=== PATIENT | male | born 1955 | race Caucasian/White ===

== ENCOUNTER → 2020-11-22 14:15 | Outpatient (CLI) | payer SELFPAY ==
[2020-11-22 16:40] LABS: PSA,Total - Annual Screen 1.72 ng/mL (0.00-4.00)
== END ==
PROVIDERS: PCP Family Medicine; Referring Provider Nurse Practitioner Adult Health; Visit Provider Nurse Practitioner Adult Health
DX: Z12.5 Encounter for screening for malignant neoplasm of prostate (principal)
CPT/HCPCS: 36415; 84153; G0103

== ENCOUNTER → 2023-03-12 | Outpatient (CLI) | payer OTHER, SELFPAY ==
[2023-03-12 11:25] LABS: PSA,Total- Diagnostic 2.07 ng/mL (0.0-4.0)
== END | disposition home or self-care (01) ==
LOC: LAB 10:20
PROVIDERS: PCP Family Medicine; Referring Provider Urology; Visit Provider Urology
DX: R97.20 Elevated prostate specific antigen [PSA] (principal)
CPT/HCPCS: 36415; 84153

== ENCOUNTER → 2024-04-13 | Outpatient (CLI) | payer OTHER, SELFPAY | END | disposition home or self-care (01) | LOC: LAB 11:21 | PROVIDERS: PCP Family Medicine; Referring Provider Urology; Visit Provider Urology | DX: N40.1 Benign prostatic hyperplasia with lower urinary tract symptoms (principal) | CPT/HCPCS: 36415; 84153 ==

== ENCOUNTER → 2025-02-22 | Outpatient (CLI) | payer OTHER, SELFPAY ==
--- OUTSIDE RECORDS SUMMARY | 2025-02-22 09:07 | XMS RPT_ITS | CCD ---
Author Organization [facility] Care Team Providers Care Tightener Name Role Phone DANDRE CALHOUN Admitting Unavailable DANDRE CALHOUN Attending Unavailable MP MEAD Primary Care Unavailable MP MEAD Consulting Unavailable CHRISTIANO CALDWELL Consulting Unavailable BLOK, KIMBERLY JR Admitting Unavailable BLOK, KIMBERLY JR Primary Care Unavailable BLOK KIMBERLY JR Attending Unavailable PROVIDER, UNKNOWN Consulting Unavailable CHRISTIANO CALDWELL Consulting Unavailable BASALI, AYMAN H Admitting Unavailable BASALI, AYMAN H Primary Care Unavailable BASALI, AYMAN H Attending Unavailable PROVIDER, UNKNOWN Consulting Unavailable CHRISTIANO CALDWELL Consulting Unavailable BLOK, KIMBERLY JR Admitting Unavailable BLOK, KIMBERLY JR Primary Care Unavailable KAYLAK, KIMBERLY JR Attending Unavailable JORDY VILLAVICENCIO Referring Unavailable PROVIDER, UNKNOWN Consulting Unavailable CHRISTIANO CALDWELL DO Primary Care Physician CHRISTIANO CALDWELL DO Primary Care Unavailable DAYRL DELGADO DO Attending Unavailable Christiano Caldwell Referring Unavailable Christiano Caldwell Primary Care Unavailable Sadiq Burch Attending Unavailable Christiano Caldwell Referring Unavailable Christiano Caldwell Primary Care Unavailable Les Whittaker Attending Unavailable Demetri Huffman Referring Unavailable Demetri Huffman Attending Unavailable Christiano Caldwell Primary Care Unavailable Christiano Caldwell Primary Care Unavailable Christiano Caldwell Referring Unavailable Les Whittaker Attending Unavailable Christiano Caldwell Referring Unavailable Les Whittaker Attending Unavailable Christiano Caldwell Primary Care Unavailable Medications Current Medications Medication Drug Class(es) Dates Sig (Normalized) Sig (Original) acetaminophen 325 mg / HYDROcodone bitartrate 5 mg oral tablet (1 source) Opioid Agonist Start: 06-09-2024 End: 06-12-2024 take 1 tablet by mouth every eight hours as needed for pain Dimock 325- 5 mg oral tablet Dose = 1 tab(s), Oral, q8h, PRN for pain, X 3 day(s), # 10 tab(s), 0 Refill(s), Flank pain, 74 Start Date: 06/09/24 Stop Date: 06/12/24 Status: Ordered Quantity: 10.0 Unit: tab(s) Repeat number: 1 Indication: Unspecified abdominal pain acetaminophen 325 mg / oxyCODONE hydrochloride 5 mg oral tablet (1 source) Opioid Agonist Start: 04-04-2023 take 1 tablet by mouth every six hours as needed for pain acetaminophen-oxyC ODONE 325 mg-5 mg oral tablet Dose = 1 tab(s), Oral, q6h, PRN for pain, # 12 tab(s), 0 Refill(s) Start Date: 04/04/23 Status: Ordered Quantity: 12.0 Unit: tab(s) Repeat number: 1 tamsulosin hydrochloride 0.4 mg oral capsule (1 source) alpha-Adrenergic Isaiah Start: 04-04-2023 tamsulosin 0.4 mg oral capsule Dose : 0.4 mg = 1 cap(s), Oral, qDay, # 30 cap(s), 0 Refill(s) Start Date: 04/04/23 Status: Ordered Quantity: 30.0 Unit: cap(s) Repeat number: 1 Problems Problem Classification Problem Date Documented Da te Episodic/Chronic Abdominal pain (1 source) Abdominal pain; Translations: [Unspecified abdominal pain] Onset: 06-09-2024 Episodic Hyperplasia of prostate (1 source) Benign prostatic hyperplasia with lower urinary tract symptoms; Translations: [Benign prostatic hyperplasia with lower urinary tract symptoms] Onset: 05-11-2024 Chronic Unclassified (1 source) Cough, unspecified; Translations: [Cough, unspecified] Onset: 09-09-2023 Results Test Name Value Interpretation Reference Range Facility Office Visit Reporton 2024 Office Visit Report [facility] [address] [address] OFFICE VISIT Date of Service: 07/02/24 MR#: [id number] Acct: [id number] Patient: SULLY PERRY Rep #: [id number] : 1955 Provider: MARQUISE Parr Age/Sex: 69/M Location: [facility] Status: Signed Intake Vital Signs 05/07/24 10:56 Height 1.78 m Weight: 77.564 kg BMI 24.5 BP 111/73 Blood Pressure Location Lt brachial Position Sitting Pulse 91 Pulse Source Monitor Temp 98.2 F Temp Source Temporal Pulse Oximetry (%) 90 Intake Visit Reasons: SINUS INFECTION/CHEST CONGESTION Chief Complaint: sinus congestion Allergies No Known Allergies Allergy (Unverified 05/07/24 10:57) Have you fallen in the past year?: No HPI HPI Chief Complaint: sinus congestion Details: SULLY PERRY, is a 69 M who presents to the office today for sinus congestion. Pt has a hx of sinus surgeries and sinus infections, as well as copd. He has had 2 days of sinus pressure in the frontal and maxillary sinuses with pain. He has congestion, post nasal drainage and cough. He is wheey but he denies breathing difficulty. He also has had some chills, sweats, and body aches, noting his arthritis is much worse which he relates to the rain. He ROS Const Constitutional: Positive for body ache and chills; No fever(s) Resp Respiratory: Positive for cough and wheezing; No shortness of breath Gastro GI: No diarrhea, nausea/dyspepsia or vomiting Aller/Imm Allergy/Immunologic: Positive for wheezing Exam Const General: cooperative, healthy appearing, comfortable, no acute distress, well developed and well groomed Nutritional Appearance: average body habitus and well nourished Orientation: alert, awake and oriented x3 HENMT Head: normocephalic and atraumatic Face and sinus: sinus tenderness frontal and maxillary Resp Effort Inspection: normal respiratory effort, able to speak in complete sentences, symmetric chest movement and cough Auscultation: Bilateral: Expiratory Wheezes (diffuse) and Crackles (BL bases) Cardio Rate: regular rate Rhythm: regular rhythm Heart Sounds: no murmurs Coding Level of Care Code Off vis,est,level 3 Diagnoses Acute sinusitis J01.90 Assessment and Plan Assessment and Plan (1) Acute sinusitis: Status: Acute Plan: Acute sinusitis - pt has had many sinus infections due to underlying sinus issues, and previous sinus surgeries. He insists azithromycin is the only thing that helps him. He is also very wheezy tho he denies SOB, and has a hx of COPD and smoking. Last time he was here he had the same issues and responded well to azithromycin and medrol dose pack. The same will be utilized this time. If no improvement or ongoing issues follow up with pcp 1 week or if worsening go to the ER. Medications: New azithromycin (Zithromax Z-Aakash) take 500 mg today (day 1), then 250 mg for 4 days (days 2-5) PO 6 tabs 0RF methylprednisolone PO PER PKG DIR 21 tabs 0RF Discontinued azithromycin (Zithromax Z-Aakash) Discontinued Reason: Pt no longer taking For 250 mg dose pack: take 500 mg today (day 1), then 250 mg for 4 days (days 2-5) PO 6 tabs 0RF methylprednisolone (Medrol (Aakash)) Discontinued Reason: Pt no longer taking PO PER PKG DIR for 6 days 21 tabs 0RF Clinical Quality Measures Falls Risk Screening/Assistive Devices Have you fallen in the past year?: No 07/02/24 0907 Date Les Lenz Signature: Date (if applicable) CC: Normal [facility] .Auto Diffon 06-09-2024 Basophil, Absolute 0.1 10 3/mcL Normal 0.0-0.2 [facility] Comment on above: Performed By: #### A NYASIA, CMP, MDW, GFR, LIP, CBC, ADIFF #### [address] [place], [place] [address] Basophils/100 WBC (Bld) 0.7 % Normal 0.0-2.5 [facility] Comment on above: Performed By: #### A NYASIA, CMP, MDW, GFR, LIP, CBC, ADIFF #### [address] [place], [place] [address] Eosinophil, Absolute 0.0 10 3/mcL Normal 0.0-0.7 [facility] Comment on above: Performed By: #### A NYASIA, CMP, MDW, GFR, LIP, CBC, ADIFF #### [address] [address] Eosinophils/100 WBC (Bld) 0.1 % Normal 0.0-7.0 [facility] Comment on above: Performed By: #### A NYASIA, CMP, MDW, GFR, LIP, CBC, ADIFF #### [address] [address] Lymphocyte, Absolute 0.6 10 3/mcL Low 0.9-4.3 [facility] Comment on above: Performed By: #### A NYASIA, CMP, MDW, GFR, LIP, CBC, ADIFF #### [address] [address] Lymphocytes/100 WBC (Bld) 6.3 % Low 20.0-40.0 [facility] Comment on above: Performed By: #### A NYASIA, CMP, MDW, GFR, LIP, CBC, ADIFF #### [address] [address] Monocyte, Absolute 0.3 10 3/mcL Normal 0.1-1.4 [facility] Comment on above: Performed By: #### A NYASIA, CMP, MDW, GFR, LIP, CBC, ADIFF #### [address] [address] Monocytes/100 WBC (Bld) 2.9 % Normal 2.0-13.0 [facility] Comment on above: Performed By: #### A NYASIA, CMP, MDW, GFR, LIP, CBC, ADIFF #### [address] [address] Neutrophils/100 WBC (Bld) 90.0 % High 50.0-75.0 [facility] Comment on above: Performed By: #### A NYASIA, CMP, MDW, GFR, LIP, CBC, ADIFF #### [address] [address] .GFRon 06-09-2024 GFR Non- 113 ml/min/1.73sqm Normal [facility] Comment on above: Result Comment: GFR Population mean for , Non- Americans Ages 20-29 = 116 mL/min/1.73 sq.m. Ages 30-39 = 107 mL/min/1.73 sq.m. Ages 40-49 = 99 mL/min/1.73 sq.m. Ages 50-59 = 93 mL/min/1.73 sq.m. Ages 60-69 = 85 mL/min/1.73 sq.m. Ages 70+ = 75 mL/min/1.73 sq.m. Chronic Kidney Disease: Less than 60 mL/min/1.73 square meters End Stage Renal Disease: Less than 15 mL/min/1.73 square meters Performed By: #### A NYASIA, CMP, MDW, GFR, LIP, CBC, ADIFF #### [address] [place], [place] [address] GFR 137 ml/min/1.73sqm Normal [facility] Comment on above: Result Comment: GFR Population mean for , Non- Americans Ages 20-29 = 116 mL/min/1.73 sq.m. Ages 30-39 = 107 mL/min/1.73 sq.m. Ages 40-49 = 99 mL/min/1.73 sq.m. Ages 50-59 = 93 mL/min/1.73 sq.m. Ages 60-69 = 85 mL/min/1.73 sq.m. Ages 70+ = 75 mL/min/1.73 sq.m. Chronic Kidney Disease: Less than 60 mL/min/1.73 square meters End Stage Renal Disease: Less than 15 mL/min/1.73 square meters Performed By: #### A NYASIA, CMP, MDW, GFR, LIP, CBC, ADIFF #### [address] [place], [place] [address] .MDWon 06-09-2024 Monocyte Distribution Width 18.38 Normal 0.00-20.00 [facility] Comment on above: Result Comment: For ED adult patients suspected of sepsis, MDW<=20.0 does not rule out sepsis or risk of sepsis Performed By: #### A NYASIA, CMP, MDW, GFR, LIP, CBC, ADIFF #### [address] [address] .NEUABSon 06-09-2024 Neutrophil, Absolute 8.8 10 3/mcL High 2.3-8.1 [facility] Comment on above: Performed By: #### A NYASIA, CMP, MDW, GFR, LIP, CBC, ADIFF #### [address] [address] CBCon 06-09-2024 Erythrocyte distribution width (RBC) [Ratio] 13.7 % Normal 11.5-15.5 [facility] Comment on above: Performed By: #### A NYASIA, CMP, MDW, GFR, LIP, CBC, ADIFF #### [address] [address] Hematocrit (Bld) [Volume fraction] 44.8 % Normal 40.0-52.0 [facility] Comment on above: Performed By: #### A NYASIA, CMP, MDW, GFR, LIP, CBC, ADIFF #### [address] [address] Hgb 15.3 G/dL Normal 13.0-17.5 [facility] Comment on above: Performed By: #### A NYASIA, CMP, MDW, GFR, LIP, CBC, ADIFF #### [address] [address] MCH (RBC) [Entitic mass] 31.3 pg Normal 27.0-33.0 [facility] Comment on above: Performed By: #### A NYASIA, CMP, MDW, GFR, LIP, CBC, ADIFF #### [address] [place] [address] MCHC 34.3 G/dL Normal 32.0-36.0 [facility] Comment on above: Performed By: #### A NYASIA, CMP, MDW, GFR, LIP, CBC, ADIFF #### [address] [address] MCV (RBC) [Entitic vol] 91.3 fL Normal 81.0-100.0 [facility] Comment on above: Performed By: #### A NYASIA, CMP, MDW, GFR, LIP, CBC, ADIFF #### [address] [address] Platelet 201 10 3/mcL Normal 150-450 [facility] Comment on above: Performed By: #### A NYASIA, CMP, MDW, GFR, LIP, CBC, ADIFF #### [address] [address] Platelet mean volume (Bld) [Entitic vol] 8.4 fL Normal 6.4-10.5 [facility] Comment on above: Performed By: #### A NYASIA, CMP, MDW, GFR, LIP, CBC, ADIFF #### [address] [address] RBC 4.91 10 6/mcL Normal 4.50-6.00 [facility] Comment on above: Performed By: #### A NYASIA, CMP, MDW, GFR, LIP, CBC, ADIFF #### [address] [address] WBC 9.8 10 3/mcL Normal 4.5-10.8 [facility] Comment on above: Performed By: #### A NYAISA, CMP, MDW, GFR, LIP, CBC, ADIFF #### [address] [address] CMPon 06-09-2024 Albumin Level 3.2 G/dL Low 3.4-4.8 [facility] Comment on above: Performed By: #### A NYASIA, CMP, MDW, GFR, LIP, CBC, ADIFF #### [address] [address] Albumin/Globulin [Mass ratio] 1.0 {ratio} Low 1.1-2.5 [facility] Comment on above: Performed By: #### A NYASIA, CMP, MDW, GFR, LIP, CBC, ADIFF #### [address] [address] ALP [Catalytic activity/Vol] 73 U/L Normal 40-135 [facility] Comment on above: Performed By: #### A KYLIE MURRELL MDW, GFR, LIP, CBC, ADIFF #### [address] [address] ALT [Catalytic activity/Vol] 14 U/L Low 16-63 [facility] Comment on above: Performed By: #### A NYASIA, MD KYLIEW, GFR, LIP, CBC, ADIFF #### [address] [address] AST [Catalytic activity/Vol] 15 U/L Normal 10-40 [facility] Comment on above: Performed By: #### A KYLIE MURRELL MDW, GFR, LIP, CBC, ADIFF #### [address] [address] Bili Total 0.6 mg/dL Normal 0.2-1.0 [facility] Comment on above: Result Comment: Use of this assay is not recommended for patients undergoing treatment with eltrombopag due to the potential for falsely elevated results. Performed By: #### A KYLIE MURRELL MDW, GFR, LIP, CBC, ADIFF #### [address] [address] BUN/Creatinine Ratio 23 ratio Normal 7-27 [facility] Comment on above: Performed By: #### A KYLIE MURRELL MDW, GFR, LIP, CBC, ADIFF #### [address] [address] Calcium [Mass/Vol] 8.7 mg/dL Normal 8.4-10.2 [facility] Comment on above: Performed By: #### A KYLIE MURRELL MDW, GFR, LIP, CBC, ADIFF #### [address] [address] Chloride [Moles/Vol] 101 mmol/L Normal 98-107 [facility] Comment on above: Performed By: #### A NYASIA, KYLIE, W, GFR, LIP, CBC, ADIFF #### [address] [address] CO2 [Moles/Vol] 32 mmol/L High 23-31 [facility] Comment on above: Performed By: #### A KYLIE MURRELL, W, GFR, LIP, CBC, ADIFF #### [address] [address] Creatinine [Mass/Vol] 0.69 mg/dL Low 0.70-1.30 [facility] Comment on above: Result Comment: Test ing performed on Semantria Dimension EXL analyzer using a modified kinetic Chaz technique. Performed By: #### A KYLIE MURRELL, JUNIE, GFR, LIP, CBC, ADIFF #### [address] [address] Electrolyte Balance 1.0 mEq/L Low 4.0-15.0 [facility] Comment on above: Performed By: #### A KYLIE MURRELL MDW, GFR, LIP, CBC, ADIFF #### [address] [address] Globulin 3.2 G/dL Normal [facility] Comment on above: Performed By: #### A KYLIE MURRELL MDW, GFR, LIP, CBC, ADIFF #### [address] [address] Glucose [Mass/Vol] 170 mg/dL High 83-110 [facility] Comment on above: Performed By: #### A KYLIE MURRELL MDW, GFR, LIP, CBC, ADIFF #### [address] [address] Potassium [Moles/Vol] 4.5 mmol/L Normal 3.5-5.1 [facility] Comment on above: Performed By: #### A KYLIE MURRELL MDW, GFR, LIP, CBC, ADIFF #### [address] [address] Sodium [Moles/Vol] 134 mmol/L Low 136-145 [facility] Comment on above: Performed By: #### A NYASIA, CMP, MDW, GFR, LIP, CBC, ADIFF #### [facility] [address] [place], [place] [address] Total Protein 6.4 G/dL Normal 6.4-8.2 [facility] Comment on above: Performed By: #### A NYASIA, CMP, MDW, GFR, LIP, CBC, ADIFF #### [facility] [address] [place], [place] [address] Urea nitrogen [Mass/Vol] 16 mg/dL Normal 7-18 [facility] Comment on above: Performed By: #### A NYASIA, CMP, MDW, GFR, LIP, CBC, ADIFF #### [facility] [address] [place], [place] [address] CT ABD/PELVIS W/ IV CONTRAST ONLYon 06-09-2024 CT ABD/PELVIS W/ IV CONTRAST ONLY ORIGINAL EXAMINATION: CT OF THE ABDOMEN AND PELVIS WITH CONTRAST 06/09/2024 2:54 pm TECHNIQUE: CT of the abdomen and pelvis was performed with the administration of intravenous contrast. Multiplanar reformatted images are provided for review. Automated exposure control, iterative reconstruction, and/or weight based adjustment of the mA/kV was utilized to reduce the radiation dose to as low as reasonably achievable. COMPARISON: None. HISTORY: ORDERING SYSTEM PROVIDED HISTORY: Reason for Exam: pain FINDINGS: Degenerative and postoperative changes are noted in the spine. Metallic artifact emanates from spinal fixation hardware. Retrolisthesis of L2 on L3 is noted and there is some anterolisthesis at L4-5. No acute osseous abnormality is identified. Minor areas of fibrosis are evident at the lung bases. Small scattered liver cysts are present. No other liver abnormality. Spleen is unremarkable. The adrenal glands are somewhat nodular, most compatible with nodular hyperplasia. A discrete adrenal focal mass is not visible. The pancreas is unremarkable. No definite renal abnormality. No adenopathy, free air or free fluid is visible. The urinary bladder is grossly normal. Minor sigmoid diverticulosis without diverticulitis noted. No other GI tract abnormality. No additional contributory abnormality. IMPRESSION: No acute abnormality identified. Mild diverticulosis without diverticulitis. Interpreted by: Marcus Moody MD Preliminary Report By: Marcus Moody MD Electronically signed By Marcus Moody MD Dictated Date: 06/09/2024 2:57:05 PM Prelim Date: 06/09/2024 3:01:41 PM Sign Date: 06/09/2024 3:01:41 PM Ordering Provider: ROSALES Webber [facility]ORATORYOrdered By: Tad Sands on 06-09-2024 Appearance (U) Clear (06/09/24 2:33 PM) Normal Clear AO Auto Urine SS Bilirubin Ql (U) Negative (06/09/24 2:33 PM) Normal Negative AO Auto Urine SS Color (U) Yellow (06/09/24 2:33 PM) Normal AO Auto Urine SS Glucose Test strip (U) [Mass/Vol] Negative Normal Negative AO Auto Urine SS Hemoglobin Auto test strip (U) [Mass/Vol] Negative (06/09/24 2:33 PM) Normal Negative AO Auto Urine SS Ketones Ql (U) Trace mg/dL Invalid Interpretation Code Negative AO Auto Urine SS UA Leuk Est Negative (06/09/24 2:33 PM) Normal Negative AO Auto Urine SS UA Nitrite Negative (06/09/24 2:33 PM) Normal Negative AO Auto Urine SS UA pH 7.0 (06/09/24 2:33 PM) Normal 5.0 - 8.0 AO Auto Urine SS UA Protein Negative Normal Negative AO Auto Urine SS UA Spec Grav 1.020 (06/09/24 2:33 PM) Normal 1.015-1.025 AO Auto Urine SS UA Specimen Type Clean Catch (06/09/24 2:33 PM) Normal AO Auto Urine SS UA Urobilinogen 0.2 E.U./dL Normal 0.2-1.0 AO Auto Urine SS LABORATORYOrdered By: SYSTEM SYSTEM on 06-09-2024 Albumin BCP dye [Mass/Vol] 3.2 G/dL Low 3.4 - 4.8 G/dL AO ADM SS Albumin/Globulin [Mass ratio] 1.0 {ratio} Low 1.1 - 2.5 ratio AO ADM SS ALP [Catalytic activity/Vol] 73 U/L Normal 40 - 135 U/L AO ADM SS ALT With P-5'-P [Catalytic activity/Vol] 14 U/L Low 16 - 63 U/L AO ADM SS AST With P-5'-P [Catalytic activity/Vol] 15 U/L Normal 10 - 40 U/L AO ADM SS Basophils (Bld) [#/Vol] 0.1 103/mcL Normal 0.0 - 0.2 10^3/mcL AO Workflow SS Basophils/100 WBC (Bld) 0.7 % Normal 0.0 - 2.5 % AO Workflow SS Bilirubin [Mass/Vol] 0.6 mg/dL Normal 0.2 - 1 .0 mg/dL AO ADM SS Comment on above: Interpretive Data: U se of this assay is not recommended for patients undergoing treatment with eltrombopag due to the potential for falsely elevated results. Calcium [Mass/Vol] 8.7 mg/dL Normal 8.4 - 10. 2 mg/dL AO ADM SS Chloride [Moles/Vol] 101 mmol/L Normal 98 - 10 7 mmol/L AO ADM SS CO2 [Moles/Vol] 32 mmol/L High 23 - 31 mmol/L AO ADM SS Creatinine [Mass/Vol] 0.69 mg/dL Low 0.70 - 1.30 mg/dL AO ADM SS Comment on above: Interpretive Data: T esting performed on Siemens Dimension EXL analyzer using a modified kinetic Chaz technique. Electrolyte Balance 1.0 mEq/L Low 4.0 - 15 .0 mEq/L AO ADM SS Eosinophil, Absolute 0.0 103/mcL Normal 0.0 - 0 .7 10^3/mcL AO Workflow SS Eosinophils/100 WBC (Bld) 0.1 % Normal 0.0 - 7.0 % AO Workflow SS Erythrocyte distribution width (RBC) [Ratio] 13.7 % Normal 11.5 - 15.5 % AO Workflow SS GFR/1.73 sq M.predicted among blacks MDRD (S/P/Bld) [Vol rate/Area] 137 ml/min/1.73sqm Invalid Interpretation Code AO Chemistry S Comment on above: Interpretive Data: GFR Population mean for , Non- Americans Ages 20-29 = 116 mL/min/1.73 sq.m. Ages 30-39 = 107 mL/min/1.73 sq.m. Ages 40-49 = 99 mL/min/1.73 sq.m. Ages 50-59 = 93 mL/min/1.73 sq.m. Ages 60-69 = 85 mL/min/1.73 sq.m. Ages 70+ = 75 mL/min/1.73 sq.m. Chronic Kidney Disease: Less than 60 mL/min/1.73 square meters End Stage Renal Disease: Less than 15 mL/min/1.73 square meters GFR/1.73 sq M.predicted among non-blacks MDRD (S/P/Bld) [Vol rate/Area] 113 ml/min/1.73sqm Invalid Interpretation Code AO Chemistry S Comment on above: Interpretive Data: GFR Population mean for , Non- Americans Ages 20-29 = 116 mL/min/1.73 sq.m. Ages 30-39 = 107 mL/min/1.73 sq.m. Ages 40-49 = 99 mL/min/1.73 sq.m. Ages 50-59 = 93 mL/min/1.73 sq.m. Ages 60-69 = 85 mL/min/1.73 sq.m. Ages 70+ = 75 mL/min/1.73 sq.m. Chronic Kidney Disease: Less than 60 mL/min/1.73 square meters End Stage Renal Disease: Less than 15 mL/min/1.73 square meters Globulin 3.2 G/dL Invalid Interpretation Code AO ADM SS Glucose [Mass/Vol] 170 mg/dL High 83 - 110 mg/dL AO ADM SS Hematocrit (Bld) [Volume fraction] 44.8 % Normal 40.0 - 52.0 % AO Workflow SS Hemoglobin (Bld) [Mass/Vol] 15.3 G/dL Normal 13.0 - 17.5 G/dL AO Workflow SS Lipase [Catalytic activity/Vol] 28 U/L Normal 16 - 77 U/L AO ADM SS Lymphocytes (Bld) [#/Vol] 0.6 103/mcL Low 0.9 - 4.3 10^3/mcL AO Workflow SS Lymphocytes/100 WBC (Bld) 6.3 % Low 20.0 - 40.0 % AO Workflow SS MCH (RBC) [Entitic mass] 31.3 pg Normal 27.0 - 33.0 pg AO Workflow SS MCHC 34.3 G/dL Normal 32.0 - 36.0 G/dL AO Workflow SS MCV (RBC) [Entitic vol] 91.3 fL Normal 81.0 - 100.0 fL AO Workflow SS Monocyte distribution width Auto (Bld) [Entitic vol] 18.38 1 Normal 0.00 - 20.00 AO Workflow SS Comment on above: Result Comment: For ED adult patients suspected of sepsis, MDW<=20.0 does not rule out sepsis or risk of sepsis Monocytes (Bld) [#/Vol] 0.3 103/mcL Normal 0.1 - 1.4 10^3/mcL AO Workflow SS Monocytes/100 WBC (Bld) 2.9 % Normal 2.0 - 13.0 % AO Workflow SS Neutrophils (Bld) [#/Vol] 8.8 103/mcL High 2.3 - 8.1 10^3/mcL AO Workflow SS Neutrophils/100 WBC (Bld) 90.0 % High 50.0 - 75.0 % AO Workflow SS Platelet mean volume (Bld) [Entitic vol] 8.4 fL Normal 6.4 - 10.5 fL AO Workflow SS Platelets (Bld) [#/Vol] 201 103/mcL Normal 150 - 450 10^3/mcL AO Workflow SS Potassium [Moles/Vol] 4.5 mmol/L Normal 3.5 - 5.1 mmol/L AO ADM SS Protein [Mass/Vol] 6.4 G/dL Normal 6.4 - 8.2 G/dL AO ADM SS RBC (Bld) [#/Vol] 4.91 106/mcL Normal 4.50 - 6.0 0 10^6/mcL AO Workflow SS Sodium [Moles/Vol] 134 mmol/L Low 136 - 145 mmol/L AO ADM SS Urea nitrogen [Mass/Vol] 16 mg/dL Normal 7 - 18 mg/dL AO ADM SS Urea nitrogen/Creatinine [Mass ratio] 23 ratio Normal 7 - 27 ratio AO ADM SS WBC (Bld) [#/Vol] 9.8 103/mcL Normal 4.5 - 10.8 10^3/mcL AO Workflow SS LIPon 06-09-2024 Lipase Level 28 U/L Normal 16-77 [facility] Comment on above: Performed By: #### A NYASIA, CMP, MDW, GFR, LIP, CBC, ADIFF #### [address] [address] UAon 06-09-2024 Color (U) Yellow Normal [facility] Comment on above: Performed By: #### U A #### [address] [address] Glucose (U) [Mass/Vol] Negative Normal Negative [facility] Comment on above: Performed By: #### U A #### [place] [address] Ketones Ql (U) Trace Abnormal Negative [facility] Comment on above: Performed By: #### U A #### [address] [place] [address] UA Appear Clear Normal Clear [facility] Comment on above: Performed By: #### U A #### [address] [place] [address] UA Blood Negative Normal Negative [facility] Comment on above: Performed By: #### U A #### [address] [place] [address] UA Leuk Est Negative Normal Negative [facility] Comment on above: Performed By: #### U A #### [place] [address] UA Nitrite Negative Normal Negative [facility] Comment on above: Performed By: #### U A #### [place] [address] UA pH 7.0 Normal 5.0 - 8.0 [facility] Comment on above: Performed By: #### U A #### [place] [address] UA Protein Negative Normal Negative [facility] Comment on above: Performed By: #### U A #### [place] [address] UA Spec Grav 1.020 Normal 1.015-1.025 [facility] Comment on above: Performed By: #### U A #### [place] [address] UA Specimen Type Clean Catch Normal [facility] Comment on above: Performed By: #### U A #### [place] [address] UA Urobilinogen 0.2 E.U./dL Normal 0.2-1.0 [facility] Comment on above: Performed By: #### U A #### [facility] [address], [place] [address] Urobilinogen (U) [Mass/Vol] Negative Normal Negative [facility] Comment on above: Performed By: #### U A #### [facility] [address], [place] [address] Internal Medicine Office Vis itosunitha 05-07-2024 Internal Medicine Office Visit [facility] [address] [place] [address] [place] [address] OFFICE VISIT Date of Service: 05/07/24 MR#: [id number] Acct: [id number] Name: SULLY PERRY Rep #: [id number] : 1955 Provider: MARQUISE Arriaza Age/Sex: 69/M Location: [facility] Status: Signed Intake Vital Signs 09/09/23 08:49 05/07/24 10:56 Height 5 ft 10 in 5 ft 10 in Weight: 173 lb 171 lb BMI 24.8 24.5 BP 102/66 111/73 Blood Pressure Location Rt brachial Lt brachial Position Sitting Sitting Pulse 91 91 Pulse Source Monitor Monitor Temp 98.3 F 98.2 F Temp Source Temporal Temporal Pulse Oximetry (%) 92 90 Intake Visit Reasons: SINUS /CONGESTION Chief Complaint: sinus congestion Allergies No Known Allergies Allergy (Unverified 05/07/24 10:57) Medications ???Medication ???Instructions ???Recorded ???Confirmed ???Type azithromycin 250 mg tablet See Rx Instructions PO .COMPLEX #6 05/07/24 05/07/24 Rx (Zithromax Z-Aakash) tabs methylprednisolone 4 mg tablets in See Rx Instructions PO PER PKG DIR 05/07/24 05/07/24 Rx a dose pack (Medrol (Aakash)) #21 tabs Have you fallen in the past year?: No HPI HPI Chief Complaint: sinus congestion Details: SULLY PERRY, is a 69 M who presents to the office today for sinus congestion. He states that he has had this for the past week and thought he could kick it with vitamin C but it didn't. He states that he has had sinus reconstruction and ends up with a sinus infection at least once a year. He states that his PCP always has given him a Z-aakash and that knocks it out every time". He states that he has had some cough and congestion with this. He denies any shortness of breath chest pains/pressures and has not noticed wheezing ROS Const Constitutional: No chills, fatigue or fever(s) ENT ENT: No ear or mastoid pain Resp Respiratory: Positive for cough Cough: Yes productive and chest congestion; No hemoptysis, shortness of breath or pain with cough Cardio Cardiology: No chest pain at rest, chest pain with exertion, shortness of breath or lightheadedness Endo Endocrine: No fatigue Exam Const General: cooperative, healthy appearing, comfortable, no acute distress, well developed, in distress and not ill appearing Nutritional Appearance: average body habitus Orientation: alert, awake and oriented x3 Limitations: mental status not altered HENMT Head: normocephalic and atraumatic Face and sinus: no erythema and sinus tenderness frontal, ethmoid and maxillary Mouth: moist mucous membranes Throat: uvula midline and postnasal drainage Neck Neck: full ROM and no lymphadenopathy Resp Effort Inspection: normal respiratory effort, able to speak in complete sentences, symmetric chest movement, normal respiratory pattern, no audible wheezes, cough Quality of cough: wet and respiratory effort not decreased Auscultation: Bilateral: Rhonchi (mainly left lung field) and Right: Inspiratory Wheezes and Expiratory Wheezes Cardio Rate: regular rate Rhythm: regular rhythm Heart Sounds: S1 normal and S2 normal Pulses: radial pulses present bilaterally 2+ Coding Level of Care Code Off vis,est,level 3 Diagnoses Acute exacerbation of chronic obstructive pulmonary disease J44.1 Acute rhinosinusitis J01.90 Assessment and Plan Assessment and Plan (1) Acute exacerbation of chronic obstructive pulmonary disease: Status: Chronic Plan: Patient has had previous bouts of bronchitis. Patient has a very long history of smoking and he has had X-rays in the past which showed hyperinflation and some scarring in the lung bases likely indicating some underlying COPD. Physical exam today shows some scattered lung sounds at the same time no focal areas / sounds that are consistent with consolidation. He insists this is his sinuses and so had to explain to him that the lung sounds indicate that there is respiratory involvement. I discussed treatment options and patient again states that Dr. Proctor always gives him the z-aakash and that is what works. I want to place him a steroid along with the antibiotic for the inflammation in the lung thompson. Also recommmend that he get some mucinex as well. I recommend that patient recheck the lung thompson in 5-7 days. He is to return sooner or go to the ED if he has ANY breathing difficulties / changes, fevers, weakness, or worsening cough / wheezing. (2) Acute rhinosinusitis: Status: Acute Plan: Patient does have a history of having sinus issues having had sinus surgery and several nasal surgeries. He does have evident discharge today with sinus tenderness throughout the sinuses. I explained that IDSA guidelines / recommendations do not include z-paks but once again he states that other things have not worked. Will go ahead with the z-aakash as he does have history of success with this medicati (more content not included)... Normal [facility] PSA,Total- Diagnosticon 11-2 PSA, DIAGNOSTIC 2.00 ng/mL Normal 0.0-4.0 [facility] Comment on above: Result Comment: This test was performed using the TPSA assay method for the [employer] chemistry system. Values obtained with different assay methods cannot be used interchangably. When changing PSA assays in the course of monitoring a patient, additional sequential testing should be carried out to confirm baseline values. Performed By: #### L [id number] #### [facility] [address] [place], [place], [address] MR HIP W/O LTon 01-14-2024 MR HIP W/O LT [address] [address] Patient: SULLY PERRY Phone#: : 1955 Age: 68 Gender: M Pt. Type: Out Account: [id number] Location: [facility] Ordering: DONNA [place] Exam Date: 01/14/2024/9:35 Family Phys: Charge Code: [id number] Physician: [place] Order #: [id number] Dose#: PROCEDURE: MRI HIP LT WITHOUT CONTRAST COMPARISON: None. INDICATIONS: Left hip pain TECHNIQUE: A comprehensive examination was performed utilizing a variety of imaging planes and imaging parameters to optimize visualization of suspected pathology. Images were performed without contrast. FINDINGS: FEMORAL HEAD: Normal. No AVN, fracture, or significant arthropathy. Femoral head is normal in contour. Joint space is maintained. There is fatty marrow replacement of the proximal femur. ACETABULUM: Normal. No fracture or significant arthropathy. There is heterogeneous fatty marrow replacement in the acetabulum. OTHER BONES: There is spurring and subchondral cysts at the pubic symphysis LABRUM: Small cyst at the posterior labrum measuring 0.4 x 0.4 cm, series 6, image 16. EFFUSIONS: None. No synovitis or loose bodies. BURSAE: Normal. No evidence of iliopsoas or trochanteric bursitis. TENDONS: Normal. Normal gluteus tendons, iliopsoas tendon, and hamstring origin. MUSCLES: Normal. No tear or strain. No inappropriate atrophy. OTHER: Disc height loss at L5-S1 CONCLUSION: 1. Left posterior small labral cyst 2. L5-S1 disc height loss Dictated by: Lisa Alcazar MD on 01/23/2024 at 11:49 Approved by: Lisa Alcazar MD on 01/23/2024 at 13:11 Normal [facility] MR HIP WO RTon 01-14-2024 MR HIP WO RT [place] [address] Patient: SULLY PERRY Phone#: : 1955 Age: 68 Gender: M Pt. Type: Out Account: [id number] Location: [facility] Ordering: THOMPSON BASALI Exam Date: 01/14/2024/9:35 Family Phys: Charge Code: [id number] Physician: [place] Order #: [id number] Dose#: PROCEDURE: MRI HIP RT WITHOUT CONTRAST COMPARISON: [facility], , HIP RT W/O CON, 02/26/2023, 10:05. INDICATIONS: Right hip pain TECHNIQUE: A comprehensive examination was performed utilizing a variety of imaging planes and imaging parameters to optimize visualization of suspected pathology. Images were performed without contrast. FINDINGS: FEMORAL HEAD: Normal. No AVN, fracture, or significant arthropathy. Right femoral head is normal in contour. Joint space is maintained. There is a bone island in the right femoral head. There is fatty infiltration of the marrow. ACETABULUM: There are subchondral cysts in the posterior acetabulum, series 10, image 11. There is heterogeneous fatty infiltration of the marrow. OTHER BONES: There is joint space loss at the pubic symphysis with spurring. There is mild subchondral edema. LABRUM: Anterior labral tear demonstrated by T2 hyperintense signal extending 0.5 cm deep to the articular surface, series 10, image 15. Superior labral tear, series 11, image 9. Superior labral cysts, series 11, image 13, collection of 3 cysts measure 0.8 x 0.4 cm. Disc height loss at L5-S1. EFFUSIONS: None. No synovitis or loose bodies. BURSAE: Normal. No evidence of iliopsoas or trochanteric bursitis. TENDONS: Normal. Normal gluteus tendons, iliopsoas tendon, and hamstring origin. MUSCLES: Normal. No tear or strain. No inappropriate atrophy. OTHER: Asymmetric edema in the right paraspinous muscle at the level of the sacrum, series 5, image 15 and series 3, image 37. Prostate is heterogeneous in signal and protrudes into the base of the bladder CONCLUSION: 1. Right hip labral tears. Right labral cysts. 2. Acetabular subchondral cysts 3. Right paraspinous muscle edema at the level of the sacrum 4. Enlarged prostate protruding into the base of the bladder Continued Report - Page 2 of 2 Patient: SULLY PERRY Phone#: : 1955 Age: 68 Gender: M Pt. Type: Out Account: [id number] Location: 062 Ordering: DONNA COXI Exam Date: 01/14/2024/9:35 Family Phys: Charge Code: [id number] Physician: [place] Order #: [id number] Dose#: Dictated by: Lisa Alcazar MD on 01/23/2024 at 13:24 Approved by: Lisa Alcazar MD on 01/23/2024 at 14:28 Normal [facility] Chest 1 Viewon 09-09-2023 Chest 1 View [facility] [address] [place] [address] Chest 1 View MR#: [id number] Acct: [id number] Name: SULLY PERRY Rep #: [id number] : 1955 M 68 From: Crispin valdovinos MD PCP: Dr. Christiano Caldwell DO Status: DEP AMB Study: Chest 1 View Date of Exam: 09/09/23 Exam# [id number] Ordering Dr: Les Deal [id number] STUDY: X-RAY CHEST REASON FOR EXAM: Male, 68 years old. SOB, cough, LLL rales TECHNIQUE: Single AP portable view of the chest. COMPARISON: None. FINDINGS: Hyperinflation. Mild increased interstitial markings throughout both lungs more prominent at the lung bases suggestive of scarring. There is no demonstrated pleural abnormality. Normal size heart. Normal mediastinum and alec. Normal visualized pulmonary arteries. There is atherosclerotic tortuosity of the aortic arch and descending thoracic aorta. Normal visualized thoracic spine. Metallic anchors are seen overlying the left humeral head suggestive of prior rotator cuff surgery. There is no demonstrated abnormality of the visualized soft tissue structures of the upper abdomen. RAD/Chest 1 View IMPRESSION: Hyperinflation. Findings suggestive scarring at the lung bases. Electronically Signed: Crispin Ramos MD at 9:59 EDT , CC: MARQUISE Parr; Dr. Christiano Caldwell DO Receiver Stocker: Signed Normal [facility] Urgent Care Visit Reporton 0 09-09-2023 Urgent Care Visit Report [facility] [address], [address] [place] [address] OFFICE VISIT Date of Service: 09/09/23 MR#: [id number] Acct: [id number] Name: SULLY PERRY Rep #: [id number] : 1955 Provider: MARQUISE Parr Age/Sex: 68/M Location: [facility] Status: Signed with Addenda ADDENDUM by MAQRUISE Parr on 09/09/23 at 1007 HPI Details: SULLY PERRY, is a 68 M who presents to the office today for Assessment and Plan Assessment and Plan (1) Acute bronchitis: Status: Acute Plan: ROS: Gen: + fatigue neg fev/chills HEENT + sinus pressure, congestion, post nasal drip neg ear pain Resp: + cough + productive + wheezing + sob Exam: Gen AT IA NAD Resp: No distress, + cough, + Expiratory wheezing throughout all thompson, rales LLL CV RRR no M/T/R/G/H Orders: Orders Chest 1 View Today R05.9 - Cough, unspecified Medications: New azithromycin (Zithromax Z-Aakash) take 500 mg today (day 1), then 250 mg for 4 days (days 2-5) PO 6 tabs 0RF methylprednisolone PO PER PKG DIR 21 tabs 0RF dextromethorphan-guai fenesin 20-400 mg/5 mL 5 mL PO Q6H PRN 473 mL 0RF cough 09/09/23 1007 Date Les Deal cc: * Signed Intake Vital Signs 09/09/23 08:49 Height 1.78 m Weight: 78.471 kg BMI 24.8 BP 102/66 Blood Pressure Location Rt brachial Position Sitting Pulse 91 Pulse Source Monitor Temp 98.3 F Temp Source Temporal Pulse Oximetry (%) 92 Intake Visit Reasons: Sinus infection Chief Complaint: sinus congestion Allergies No Known Allergies Allergy (Unverified 09/09/23 08:54) HPI HPI Chief Complaint: sinus congestion Details: SULLY PERRY, is a 68 M who presents to the office today for sinus congestion. pt has felt sick about 2 weeks. He has sinus congestion and pressure, drainage down the throat, cough with sob and wheezing. No fever/chills. He denies a hx of asthma/copd/lung disease. He states he gets this every year and normally sees Dr. Caldwell who gives him a Z pack and that fixes it. Coding Level of Care Code Off vis,new,level 3 Diagnoses Sinusitis J32.9 Acute bronchitis J20.9 Assessment and Plan Assessment and Plan (1) Sinusitis: (2) Acute bronchitis: Status: Acute Plan: Sick x 2 weeks with productive cough, sob, wheezing, sinus pressure and drainage. Wheezing and rales on exam. CXR obtained today interpreted by radiology, shows scarring at the bases. At this time start azithromycin, mucinex dm, and medrol dose pack. No chronic medical issues/medication use Follow up with PCP as needed. Orders: Orders Chest 1 View Today R05.9 - Cough, unspecified Medications: New azithromycin (Zithromax Z-Aakash) take 500 mg today (day 1), then 250 mg for 4 days (days 2-5) PO 6 tabs 0RF methylprednisolone PO PER PKG DIR 21 tabs 0RF dextromethorphan-guai fenesin 20-400 mg/5 mL 5 mL PO Q6H PRN 473 mL 0RF cough Clinical Quality Measures High Blood Pressure Screening/Follow Up High Blood Pressure follow-up Instructions: Recommended Blood Pressure Follow-Up Interventions: *Normal BP: No follow-up required for SBP < 120 mmHg and DBP < 80 mmHg: *Elevated BP: Patients with SBP of 120-129 mmHg and DBP < 80 mmHg: *Referral to Alternate/Primary Care Health Hinging Machine Operator OR * Follow-up with rescreen in 2 to 6 months AND recommend nonpharmacologic interventions * First Hypertensive BP Reading: Patients with one elevated reading of SBP >=130 mmHg OR DBP >= 80 mmHg: *Referral to Alternate/Primary Care Health Professional OR *Follow-up with rescreen in >1 day and < 4 weeks AND recommend nonpharmacologic interventions *Second Hypertensive BP Reading: *Second Hypertensive BP Reading:Patients with second elevated reading of SBP of 130-139 mmHg or DBP of 80-89 mmHg (and not SBP >=140 or DBP >=90): * Referral to Alternate/Primary Care Health Hinging Machine Operator OR *Nonpharmacological Intervention AND reassessment in 2-6 months AND an order for a laboratory test or ECG for hypertension *Second Hypertensive BP Reading: SBP >=140 or DBP >=90 *Referral to Alternate/Primary Care Healthcare Professional OR *Nonpharmacological Intervention AND BP lowering medication AND reassessment within 4 weeks AND an order for a laboratory test or ECG for hypertension BP Second Hypertensive Readings: For both questions related to the second hypertensive readings, orders for lab/ECG need to be placed in addition to responding to the non-pharmacological and follow up questions. 09/09/23 1005 Date Les Lenz Signature: Date (if applicable) CC: Normal [facility] No Panel InformationOrdered By: Demetri Huffman on 03-12-2023 Prostate Specific Antigen Total 2.07 ng/mL 0.0-4.0 [facility] Comment on above: This test was perfor med using the TPSA assay method for [employer] chemistry system. Values obtained with differentassay methods cannot be used interchangably.When changing PSA assays in the course of monitoring apatient, additional sequential testing should be carriedout to confirm baseline values. HIP WO RTon 02-26-2023 MR HIP WO RT [place] [address] Patient: SULLY PERRY Phone#: : 1955 Age: 68 Gender: M Pt. Type: Out Account: [id number] Location: 2 Ordering: KIMBERLY MOORE D.O. Exam Date: 02/26/2023/10:05 Family Phys: Charge Code: [id number] Physician: [place] Order #: [id number] Dose#: PROCEDURE: MRI HIP RT WITHOUT CONTRAST COMPARISON: None. INDICATIONS: Low back and right hip pain TECHNIQUE: A comprehensive examination was performed utilizing a variety of imaging planes and imaging parameters to optimize visualization of suspected pathology. Images were performed without contrast. FINDINGS: FEMORAL HEAD: Normal. No AVN, fracture, or significant arthropathy. There is a bone island in the right humeral head. ACETABULUM: Subchondral cysts in the posterior aspect of the labrum, series 15, image 21. OTHER BONES: Heterogeneous marrow signal without discrete focal lesion. Degenerative changes at the pubic symphysis. Degenerative changes of the lower lumbar spine with disc height loss and degenerative changes at L4-5 and L5-S1. LABRUM: There is an anterior labral tear, series 15, image 17. There is superior labral tear, series 18, image 11. There is a labral tear with small paralabral cysts, image 15. The cyst measures 0.5 x 0.3 cm. The posterior labrum is indistinct, appearing hypertrophied and heterogeneous in signal. Likely representing degenerative changes and possible tears. EFFUSIONS: None. No synovitis or loose bodies. BURSAE: Normal. No evidence of iliopsoas or trochanteric bursitis. TENDONS: Normal. Normal gluteus tendons, iliopsoas tendon, and hamstring origin. MUSCLES: Normal. No tear or strain. No inappropriate atrophy. OTHER: Nodular component of the prostate protrudes into the urinary bladder. Urinary bladder is distended. CONCLUSION: 1. Multiple labral tears involving the anterior and superior labrum. There is a small superior paralabral cyst 2. Posterior labrum is hypertrophied and heterogeneous signal, consistent with degenerative changes and possible tears. 3. Subchondral cysts posterior acetabular rim 4. Prostate protrudes into the bladder, recommend clinical correlation for neoplasm. [place] [address] Patient: SULLY PERRY Phone#: : 1955 Age: 68 Gender: M Pt. Type: Out Account: [id number] Location: [facility] Ordering: KIMBERLY MOORE D.O. Exam Date: 02/26/2023/10:05 Family Phys: Charge Code: [id number] Physician: [place] Order #: [id number] Dose#: Dictated by: Lisa Alcazar MD on 03/04/2023 at 13:07 Approved by: Lisa Alcazar MD on 03/04/2023 at 13:22 Normal [facility] MR LUMBAR SP WO CONTRASTon 1 MR LUMBAR SP WO CONTRAST [address] [address] Patient: SULLY PERRY Phone#: : 1955 Age: 68 Gender: M Pt. Type: Out Account: [id number] Location: 062 Ordering: KIMBERLY MOORE D.O. Exam Date: 02/26/2023/10:05 Family Phys: Charge Code: [id number] Physician: [place] Order #: [id number] Dose#: PROCEDURE: MRI LUMBAR SPINE WITHOUT CONTRAST COMPARISON: None. INDICATIONS: Low back and right hip pain TECHNIQUE: A variety of imaging planes and parameters were utilized for visualization of suspected pathology. FINDINGS: PARASPINAL AREA: Normal with no visible mass. BONES: No fracture, pars defect, or osseous lesion. CORD/CAUDA EQUINA: Normal caliber, contour, and signal intensity. LUMBAR DISC LEVELS: L1-L2: No significant disc/facet abnormality, spinal stenosis, or foraminal stenosis. L2-L3: Annular disc bulging is present. There is broad based disc herniation centrally and to the right of midline there is severe right foraminal narrowing. There is mild to moderate left foraminal narrowing. There is severe narrowing of the spinal canal. There is bony hypertrophy at the articular facettes. Type 1 Modic changes are present. L3-L4: Annular disc bulging is present. There is bony hypertrophy at the articular facettes. There is moderate narrowing of the spinal canal. There is mild right foraminal narrowing. There is mild to moderate left foraminal narrowing L4-L5: There is minimal anterolisthesis. There is disc degeneration. Annular disc bulging is present. There is bony hypertrophy at the articular facettes. There is moderate to severe right foraminal narrowing. There is severe left foraminal narrowing. There is severe spinal canal narrowing. L5-S1: Disc space narrowing is present. There is disc degeneration. The spinal canal and foramina are patent. CONCLUSION: 1. Broad-based disc herniation is present centrally and to the right at the L2-3 level. There is severe narrowing of the spinal canal. There is severe right foraminal narrowing. 2. Moderate to severe foraminal impingement is present bilaterally at L4-5. 3. Spinal canal narrowing is most marked at the L2-3 and L4-5 levels. Dictated by: Mikki Nicolas MD on 02/26/2023 at 13:22 Continued Report - Page 2 of 2 Patient: SULLY PERRY Phone#: : 1955 Age: 68 Gender: M Pt. Type: Out Account: [id number] Location: 2 Ordering: KIMBERLY MOORE D.O. Exam Date: 02/26/2023/10:05 Family Phys: Charge Code: [id number] Physician: [place] Order #: [id number] Dose#: Approved by: Mikki Nicolas MD on 02/26/2023 at 13:39 Normal [facility] Coronavirus 2019on 0 COVID 19 Result [employer]ENDER Normal Negative for COVID19 (SARS CoV2) by PCR. [facility] Comment on above: Result Comment: Nega tive for This test was developed and its performance characteristics determined by [facility]'s [facility] [place]. This test has been authorized by FDA under an Emergency Use Authorization (EUA). This test has been validated in accordance with the FDA's Guidance Document "Policy for Diagnostics Testing in Laboratories Certified to Perform High Complexity Testing under CLIA prior to Emergency use Authorization for Coronavirus Disease 2019 during the Public Health Emergency" issued on July 18, 2019. COVID19 (SARS This test was developed and its performance characteristics determined by [facility] [place]. This test has been authorized by FDA under an Emergency Use Authorization (EUA). This test has been validated in accordance with the FDA's Guidance Document "Policy for Diagnostics Testing in Laboratories Certified to Perform High Complexity Testing under CLIA prior to Emergency use Authorization for Coronavirus Disease 2019 during the Public Health Emergency" issued on July 18, 2019. CoV2) by PCR. This test was developed and its performance characteristics determined by [facility] [place]. This test has been authorized by FDA under an Emergency Use Authorization (EUA). This test has been validated in accordance with the FDA's Guidance Document "Policy for Diagnostics Testing in Laboratories Certified to Perform High Complexity Testing under CLIA prior to Emergency use Authorization for Coronavirus Disease 2019 during the Public Health Emergency" issued on July 18, 2019. Coronavirus 2019on 0 COVID 19 Source [employer] Normal [facility] [facility] Comment on above: Result Comment: Naso pharyngeal Corrected on 04/08 AT 1715: Previously reported as [employer] Swab Corrected on 04/08 AT 1715: Previously reported as [employer] Basic Metabolic Panel Reflex Mgon 12-23-2018 Anion gap [Moles/Vol] 8 mmol/L Low 9-15 [facility] Comment on above: Performed By: #### L ACID #### [facility] [address] [place] [address] Calcium [Mass/Vol] 8.4 mg/dL Low 8.5-9.9 [facility] Comment on above: Performed By: #### L ACID #### [facility] [address] [place] [address] Chloride [Moles/Vol] 104 mmol/L Normal 95-107 [facility] Comment on above: Performed By: #### L ACID #### [facility] [address] [place] [address] CO2 [Moles/Vol] 25 mmol/L Normal 20-31 [facility] Comment on above: Performed By: #### L ACID #### [facility] [address] [place] [address] Creatinine [Mass/Vol] 0.73 mg/dL Normal 0.70-1.20 [facility] Comment on above: Performed By: #### L ACID #### [facility] [address] [place] [address] GFR/1.73 sq M predicted among blacks MDRD (S/P/Bld) [Vol rate/Area] mL/min/{1.73_m2} Normal >60 [facility] Comment on above: Result Comment: >60 mL/min/1.73m2 EGFR, calc. for ages 18 and older using the MDRD formula (not corrected for weight), is valid for stable renal function. Performed By: #### L ACID #### [facility] [address] [place] [address] GFR/1.73 sq M.predicted MDRD (S/P/Bld) [Vol rate/Area] mL/min/{1.73_m2} Normal >60 [facility] Comment on above: Result Comment: >60 mL/min/1.73m2 EGFR, calc. for ages 18 and older using the MDRD formula (not corrected for weight), is valid for stable renal function. Performed By: #### L ACID #### [facility] [address] [place] [address] Glucose [Mass/Vol] 115 mg/dL Critically high 70-[address] [facility] ([place], [place]) Comment on above: Performed By: #### L ACID #### [facility] [address] [place] [address] Potassium reflex Mg 4.6 mEq/L Normal 3.4-4.9 [facility] Comment on above: Performed By: #### L ACID #### [facility] [address] [place] [address] Sodium [Moles/Vol] 137 mmol/L Normal 135-144 [facility] Comment on above: Performed By: #### L ACID #### [facility] [address] [place] [address] Urea nitrogen [Mass/Vol] 14 mg/dL Normal 8-23 [facility] Comment on above: Performed By: #### L ACID #### [facility]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 ([facility]) MICROSCOPIC DESCRIPTION: A&B) Slides reviewed. Electronically Signed by Pathology Report verified by [facility] Electronically signed by MAREK KIRAN MD Sign out Date: 06/05/2018 14:20 Performing Lab: [facility], [address] [place] [address] ([place]) Comment on above: Performed By: #### S PFR #### [place] [address] Vital Signs Date Time Vital Sign Value Performing Clinician Tamara archibald 06-09-2024 15:44-0500 Diastolic Blood Pressure Non-Invasive 78 mm[Hg] DARYL DELGADO DO [facility] 06-09-2024 15:44-0500 Heart rate 61 /min DARYL DELGADO DO [facility] 06-09-2024 15:44-0500 Mean blood pressure 94 mm[Hg] DARYL DELGADO DO [facility] 06-09-2024 15:44-0500 Respiratory rate 18 /min DARYL DELGADO DO [facility] 06-09-2024 15:44-0500 Systolic Blood Pressure Non-Invasive 125 mm[Hg] DARYLEMILY DELGADO DO [facility] 06-09-2024 14:02-0500 Blood Pressure Location DARYL SANDY DO [facility] 06-09-2024 14:02-0500 Blood Pressure Method DARYL DELGADO DO [facility] 06-09-2024 14:02-0500 Diastolic Blood Pressure Non-Invasive 81 mm[Hg] DARYL DELGADO DO [facility] 06-09-2024 14:02-0500 Heart rate 62 /min DARYL DELGADO DO [facility] 06-09-2024 14:02-0500 Respiratory rate 16 /min DARYL DELGADO DO [facility] 06-09-2024 14:02-0500 Systolic Blood Pressure Non-Invasive 123 mm[Hg] DARYL DELGADO DO [facility] 06-09-2024 12:18-0500 Blood Pressure Location DARYL DELGADO DO [facility] 06-09-2024 12:18-0500 Blood Pressure Method DARYL DELGADO DO [facility] 06-09-2024 12:18-0500 Body height 177.8 cm DARYL DELGADO DO [facility] 06-09-2024 12:18-0500 Body temperature 97.52 [degF] DARYL DELGADO DO [facility] 06-09-2024 12:18-0500 Body weight 75 kg DARYL DELGADO DO [facility] 06-09-2024 12:18-0500 Diastolic Blood Pressure Non-Invasive 89 mm[Hg] DARYL DELGADO DO [facility] 06-09-2024 12:18-0500 Heart rate 70 /min DARYL DELGADO DO [facility] 06-09-2024 12:18-0500 Respiratory rate 16 /min DARYL DELGADO DO [facility] 06-09-2024 12:18-0500 Systolic Blood Pressure Non-Invasive 152 mm[Hg] DARYL DELGADO DO [facility] Encounters Encounter Date Encounter Type Care Provider Facility Start: 07-02-2024 End: 07-02-2024 ambulatory Christiano Brynn Facility:[facility] Start: 06-09-2024 End: 06-09-2024 Emergency department patient visit DARYL DELGADO DO [facility] Start: 05-07-2024 End: 05-07-2024 ambulatory Christiano Brynn Facility:[facility] Start: 04-13-2024 End: 04-13-2024 ambulatory Demetri Huffman Facility:[facility] Start: 01-14-2024 End: 01-14-2024 ambulatory [facility]RISTIANO [facility] Start: 09-09-2023 End: 09-09-2023 ambulatory Christiano Brynn Facility[facility] Start: 03-18-2023 End: 03-18-2023 ambulatory CHRISTIANO [facility] Start: 03-12-2023 End: 03-12-2023 ambulatory [facility] Work Phone: Start: 03-12-2023 End: 03-12-2023 Patient encounter procedure [facility] Work Phone: Start: 02-26-2023 End: 02-26-2023 ambulatory CHRISTIANO [facility] Start: 12-22-2018 End: 12-23-2018 Evaluation and management of inpatient DANDRE CALHOUN [facility] Procedures Date Procedure Procedure Detail Performing Clinician Start: 12-23-2018 AMB REFERRAL TO PHYS ICAL THERAPY DANDRE CALHOUN Start: 12-23-2018 DISCHARGE PATIENT DANDRE CALHOUN Start: 12-23-2018 NON WEIGHT BEARING TRUONG CALHOUN Start: 12-23-2018 OT EVAL AND TREAT DADNRE CALHOUN Start: 12-23-2018 PT EVAL AND TREAT DANDRE CALHOUN Start: 12-23-2018 NURSING COMMUNICATION P JOSE LUIS CALHOUN Start: 12-23-2018 INITIATE OXYGEN THER APY PROTOCOL DANDRE CALHOUN Start: 12-23-2018 DME ORDER FOR CRUTCH ES OP DANDRE CALHOUN Start: 12-23-2018 DME ORDER FOR WALKER OP DANDRE CALHOUN Start: 12-23-2018 DIET GENERAL DANDRE TRAN Start: 12-23-2018 TOUCH DOWN WEIGHT BEARING DANDRE CALHOUN Start: 12-23-2018 IP CONSULT TO ORTHOP EDIC SURGERY DANDRE CALHOUN Start: 12-23-2018 Blood count complete auto&auto difrntl wbc DANDRE CALHOUN Start: 12-23-2018 Comprehensive metabo lic panel DANDRE CALHOUN Start: 12-23-2018 Radiologic exam ches t single view DANDRE CALHOUN Start: 12-23-2018 ELEVATE HEELS OFF OF BED DANDRE CALHOUN Start: 12-23-2018 HEAD OF BED 60 DEGRE ES OR LESS DANDRE CALHOUN Start: 12-23-2018 NURSING COMMUNICATION Seymour CALHOUN Start: 12-23-2018 TURN PATIENT DANDRE TRAN Start: 12-23-2018 FULL CODE DANDRE TRAN Start: 12-23-2018 INITIATE OXYGEN THER APY PROTOCOL DANDRE CALHOUN Start: 12-23-2018 INTAKE AND OUTPUT DANDRE CALHOUN Start: 12-23-2018 NEURO/VASCULAR CHECKS Seymour CALHOUN Start: 12-23-2018 NOTIFY PHYSICIAN (SPECIFY) DANDRE CALHOUN Start: 12-23-2018 NURSING COMMUNICATION Seymour CALHOUN Start: 12-23-2018 PLACE INTERMITTENT PNEUMATIC COMPRESSION DEVICE DANDRE CALHOUN Start: 12-23-2018 VITAL SIGNS DANDRE TRAN Start: 12-22-2018 PATIENT STATUS (FROM ED OR OR/PROCEDURAL) DANDRE CALHOUN Start: 12-22-2018 Assay of ethanol DANDRE CALHOUN Start: 12-22-2018 Assay of lactate DANDRE CALHOUN Start: 12-22-2018 Assay of lipase DANDRE BUENO Start: 12-22-2018 Assay of troponin quantitative DANDRE CALHOUN Start: 12-22-2018 Blood count complete auto&auto difrntl wbc DANDRE CALHOUN Start: 12-22-2018 Comprehensive metabo lic panel DANDRE CALHOUN Start: 12-22-2018 Prothrombin time DANDRE CALHOUN Start: 12-22-2018 Thromboplastin time partial plasma/whole blood DANDRE CALHOUN Start: 12-22-2018 TYPE AND SCREEN DANDRE Jeff BUENO Start: 12-22-2018 Ct cervical spine w/ o contrast material DANDRE CALHOUN Start: 12-22-2018 Ct head/brain w/o co ntrast material DANDRE CALHOUN Start: 12-22-2018 Ct pelvis w/contrast material DANDRE CALHOUN Start: 12-22-2018 Ct thorax w/contrast material DANDRE CALHOUN Start: 12-22-2018 Radiologic exam ches t single view DANDRE CALHOUN Start: 12-22-2018 Radiologic examinati on knee 1/2 views DANDRE CALHOUN Start: 12-22-2018 Ecg routine ecg w/le ast 12 lds w/i&r DANDRE CALHOUN Start: 06-02-2018 Arthroplasty of knee EM EMILY DELGADO DO Comment on above: double knee Start: 09-17-2004 Rotator cuff includi ng muscles and tendons (body structure) DARYL DELGADO DO Comment on above: both Laser device (physic al object) DARYL DELGADO DO Comment on above: back Payers Date Payer Category Payer Unknown [id number] 2023 Self-pay [id number] 2022 Unknown 2018 Unknown [id number] 1955 Unknown [id number] 2.16.8 [id number] 1955 Unknown [id number] 2.16.8 [id number] 1955 Unknown [id number] 2.16.8 [id number] 1955 Unknown [id number] 2.16.8 [id number] 1955 Unknown [id number] 2.16.8 [id number] Unknown 151 Unknown [id number] 2.16.8 [id number] Unknown [id number] 2.16.8 [id number] Unknown [id number] 2.16.8 [id number] Unknown [id number] 2.16.8 [id number] Unknown [id number] 2.16.8 [id number] Social History Date Type Detail Facility Tobacco smoking stat [facility] Unknown if ever smoked [facility] Work Phone: Start: 1955 Sex Assigned At Male [facility] Start: 04-04-2023 Tobacco smoking status Smokes tobacco daily (finding) [facility] Start: 06-03-2018 Sex Male (finding) [facility] Functional Status Date Assessment Result Facility 06-09-2024 Functional Status Independent [facility] 06-09-2024 Functional Status Standard Safet y ID band on, Call device within reach, Bed in low position, Wheels locked, Upper/Half-Length side-rails up, personal items within reach, Bedside Cart Locked, Visitor at bedside [facility] Mental Status Date Assessment Result Facility 06-09-2024 Mental Status Orientation Oriented x 4 [facility] 06-09-2024 Mental Status [facility] Discharge instructions 06-09-2024 Note Date & Type Note Facility 06-09-2024 Hospital Discharg e instructions Patient Education 06/09/2024 15:25:50 Flank Pain, Uncertain Cause Flank Pain, Uncertain Cause The flank is the area between your upper abdomen and your back. Pain there is often caused by a problem with your kidneys. It might be a kidney infection or a kidney stone. Other causes of flank pain include spinal arthritis, a pinched nerve from a back injury, or a back muscle strain or spasm. The cause of your flank pain is not certain. You may need other tests. Home care Follow these tips when caring for yourself at home: You may use acetaminophen or ibuprofen to control pain, unless your health care provider prescribed another medicine. If you have chronic liver or kidney disease, talk with your provider before taking these medicines. Also talk with your provider first if you ve ever had a stomach ulcer or GI bleeding. If the pain is coming from your muscles, you may get relief with ice or heat. During the first 2 days after the injury, put an ice pack on the painful area for 20 minutes every 2 to 4 hours. This will reduce swelling and pain. A hot shower, hot bath, or heating pad works well for a muscle spasm. You can start with ice, then switch to heat after 2 days. You might find that alternating ice and heat works well. Use the method that feels the best to you. Follow-up care Follow up with your healthcare provider if your symptoms don t get better over the next few days. When to seek medical advice Call your healthcare provider right away if any of these happen: Repeated vomiting Fever of 100.4 F (38 C) or higher, or as directed by your health care provider Flank pain that gets worse Pain that spreads to the front of your belly (abdomen) Dizziness, weakness, or fainting Blood in your urine Burning feeling when you urinate or the need to urinate often Pain in one of your legs that gets worse Numbness or weakness in a leg [id number] [employer]. [address] [place] [address]. All rights reserved. This information is not intended as a substitute for professional medical care. Always follow your healthcare professional's instructions. Follow Up Care 06/09/2024 12:11:21 With:CHRISTIANO CALDWELL DO Address: [address] [address] [facility] [place] [address] [phone] When:2-4 days [facility] Clinical Note 01-21-2025 Note Date & Type Note Facility 06-09-2024 Note Discharge Instructions Thank you for allowing [facility] to assist you with your healthcare needs. The following is important discharge information regarding your hospital visit. Diagnosis from Today's Visit Flank pain What to Do Next Instructions from Your Care Team Please follow-up with your primary care provider in the next 2-4 days. I encourage you to stay hydrated so that you can keep urinating. If you have any worsening of your symptoms or other concerns, you are is welcome to return to the emergency department for reevaluation. I am giving you Dimock to use only as needed for significant pain. If your symptoms are under control with Tylenol and ibuprofen, I recommend that you only use these medications. Please eat heavy fiber foods, you can buy MiraLAX [id number], prune juice to help while taking Dimock so that you do not become constipated. Please no operating heavy machinery or driving under the influence of narcotics. No qualifying data available. Post Acute Orders No qualifying data available. You Need to Schedule the Following Appointments Follow Up with CHRISTIANO CALDWELL DO When:Within 2-4 days Where:[address] [id number] [place] [address] [phone] Allergies NKA Medications Please ask your primary doctor or pharmacist before taking any other medication not listed, including over the counter drugs, herbal medications, vitamins and or supplements as they may interact with your home medications. What How Much When Why Instructions Last Dose New acetaminophen-hydrocodone (Dimock 325- 5 mg oral tablet) 1 tab(s) by mouth Every 8 hours as needed for for pain Flank pain Duration: 3 Days Printed Prescription Unchanged acetaminophen-oxyCODONE (acetaminophen-oxyCODONE 325 mg-5 mg oral tablet) 1 tab(s) by mouth Every 6 hours as needed for for pain Unchanged tamsulosin (tamsulosin 0.4 mg oral capsule) 1 cap by mouth Once a day Please take this list to your next doctor s visit. Bring all medications you take, including over the counter medications, herbals and other supplements with you to your doctor s visit. Patients and families are reminded to discard old lists and to update any records with all medication providers or retail pharmacies. Education Materials Flank Pain, Uncertain Cause The flank is the area between your upper abdomen and your back. Pain there is often caused by a problem with your kidneys. It might be a kidney infection or a kidney stone. Other causes of flank pain include spinal arthritis, a pinched nerve from a back injury, or a back muscle strain or spasm. The cause of your flank pain is not certain. You may need other tests. Home care Follow these tips when caring for yourself at home: You may use acetaminophen or ibuprofen to control pain, unless your health care provider prescribed another medicine. If you have chronic liver or kidney disease, talk with your provider before taking these medicines. Also talk with your provider first if you ve ever had a stomach ulcer or GI bleeding. If the pain is coming from your muscles, you may get relief with ice or heat. During the first 2 days after the injury, put an ice pack on the painful area for 20 minutes every 2 to 4 hours. This will reduce swelling and pain. A hot shower, hot bath, or heating pad works well for a muscle spasm. You can start with ice, then switch to heat after 2 days. You might find that alternating ice and heat works well. Use the method that feels the best to you. Follow-up care Follow up with your healthcare provider if your symptoms don t get better over the next few days. When to seek medical advice Call your healthcare provider right away if any of these happen: Repeated vomiting Fever of 100.4 F (38 C) or higher, or as directed by your health care provider Flank pain that gets worse Pain that spreads to the front of your belly (abdomen) Dizziness, weakness, or fainting Blood in your urine Burning feeling when you urinate or the need to urinate often Pain in one of your legs that gets worse Numbness or weakness in a leg [id number] [employer]. [address] [place] [id number]. All rights reserved. This information is not intended as a substitute for professional medical care. Always follow your healthcare professional's instructions. Additional Information VACCINATE! IT SAVES LIVES! Members of the community who have not yet received the COVID-19 vaccine and would like to receive it can visit one of [facility] vaccine clinics. There are many vaccine clinic locations within the [facility]. For locations and available times, please visit [email or web address] It is important to note that some COVID mobile vaccine clinics are held outdoors and may be canceled in rainy or stormy conditions. To learn more about pediatric vaccinations (ages 5-11), we invite you to visit the [facility] webpage. [email or web address]/[email or web address]-Ldzco-[email or web address]-Frequently-[email or web address] -Questions.html To learn more about the COVID-19 vaccine, we invite you to visit the CDC website for a list of frequently asked questions. https://www.cdc.gov/coronavirus/2019-n cov/vaccines/faq.html [facility] Patient Portal Access Instructions: Stay connected with your healthcare team and access your personal medical information anytime with the [facility] Patient Portal. If you would like a full copy of your medical records please contact the [facility] Medical Records Department Saturday through Saturday between 8a.m. and 4:30p.m. Please follow the directions below to access the portal: 1.Access the email account you provided upon registration to the [facility].2.Look for an invitation email from [facility].3.Open the email and access the invitation link: Accept Invitation to [facility].Fill in the required thompson to create your account. Sign into [email or web address] with your username and password that you created in the above steps to stay up to date. You can then view a summary of results, a summary of your visits, and the ability to download your summaries to your computer or send the information securely to a physician. Remember that your healthcare information is confidential, so carefully consider who you will allow to register on the [facility] Patient Portal for access to your information. You can also access the [facility] Patient Portal on the [employer]. Simply click on "Health Records" under "Health Data" and then click on the [employer] logo. HOW TO SAFELY DISPOSE OF PRESCRIPTION MEDICATIONS Please use one of the following methods to safely dispose of your unused medications. 1.Use a drug disposal kit: the drug disposal pouch allows you to safely discard your old and unused drugs. Ask your nurse to give you one when you are discharged.2.Visit a local take-back location: Many local pharmacies and police departments have programs that collect old and unwanted prescription drugs. Call your local pharmacy or go to http://MeeDoc.BioDetego/5M1Eu1y to find one close to you.3.Make use of household items: Use cat litter or old coffee grounds to dispose medications if other options are not available. Mix your drugs with these household products, seal them in an airtight container and throw it into the garbage. Call [facility]: [phone] to be sure your drugs can be disposed of in this way. Some medicines may require a different approach.4.Never flush your medications down the toilet. IF YOU HAVE BEEN PRESCRIBED AN OPIOIDS FOR PAIN If you have been prescribed an opioid (such as hydrocodone, oxycodone or morphine), it is critical to understand the possible side effects and risks of opioid pain medications. Even when taken as directed, opioids can have several side effects including: Tolerance, meaning you might need to take more of a medication for the same pain relief. Nausea, vomiting and/or constipation. Sleepiness, dizziness, dry mouth, confusion, depression or itching. Physical dependence, meaning you have withdrawal symptoms when a medication is stopped ? this can develop within a few days. KNOW YOUR RESPONSIBILITIES It is important to know exactly how much and how often to take the opioid pain medications you are prescribed. Never take opioids in higher amounts or more often than prescribed. Do not combine opioids with alcohol or other drugs that cause drowsiness, such as benzodiazepines, also known as benzos, including diazepam and alprazolam, muscle relaxants or sleep aids. Never sell or share prescription opioids. This is illegal. Store opioids in a secure place and out of reach of others (including children, family, friends and visitors). The last page(s) of this document has been signed and retained as a CHART COPY Signatures Patient Education Materials Flank Pain, Uncertain Cause Medication Leaflets My discharge plan and instructions have been reviewed and explained to me and I,SULLY PERRY understand my current condition and have read and understand these discharge instructions. I have received a written copy of the plan/instructions. If I have questions, I am aware that I should contact my doctor. Patient/Rack Maker Signature: _ Date/Time: Relationship to Patient: Witness Name/Signature: Date/Time: [facility] Clinical Note 06-09-2024 Note Date & Type Note Facility 06-09-2024 Note Exam Date Time Procedure Performing Provider Status 06/09/24 2:[address] Abd/Pelvis w/ IV Contrast Only MARCUS VENTURA MD; Auth (Verified) [id number] ORIGINAL EXAMINATION: CT OF THE ABDOMEN AND PELVIS WITH CONTRAST 06/09/2024 2:54 pm TECHNIQUE: CT of the abdomen and pelvis was performed with the administration of intravenous contrast. Multiplanar reformatted images are provided for review. Automated exposure control, iterative reconstruction, and/or weight based adjustment of the mA/kV was utilized to reduce the radiation dose to as low as reasonably achievable. COMPARISON: None. HISTORY: ORDERING SYSTEM PROVIDED HISTORY: Reason for Exam: pain FINDINGS: Degenerative and postoperative changes are noted in the spine. Metallic artifact emanates from spinal fixation hardware. Retrolisthesis of L2 on L3 is noted and there is some anterolisthesis at L4-5. No acute osseous abnormality is identified. Minor areas of fibrosis are evident at the lung bases. Small scattered liver cysts are present. No other liver abnormality. Spleen is unremarkable. The adrenal glands are somewhat nodular, most compatible with nodular hyperplasia. A discrete adrenal focal mass is not visible. The pancreas is unremarkable. No definite renal abnormality. No adenopathy, free air or free fluid is visible. The urinary bladder is grossly normal. Minor sigmoid diverticulosis without diverticulitis noted. No other GI tract abnormality. No additional contributory abnormality. IMPRESSION: No acute abnormality identified. Mild diverticulosis without diverticulitis. Interpreted by: Marcus Moody MD Preliminary Report By: Marcus Mooyd MD Electronically signed By Marcus Moody MD Dictated Date: 06/09/2024 2:57:05 PM Prelim Date: 06/09/2024 3:01:41 PM Sign Date: 06/09/2024 3:01:41 PM Ordering Provider: ROSALES DOWNEY [facility] Evaluation + Plan note Note Date & Type Note Facility Evaluation + Plan note No data available for this section [facility] Evaluation note Note Date & Type Note Facility Evaluation note No assessment information availa karla [facility] Work Phone: Summary Purpose Family History No Family History Records FoundNo Family History Records FoundNo Family History Records FoundNo Family History Records Found No data available for this section No Family History Records FoundNo Family History Records Found Advance Directives No Advanced Directives Records FoundNo Advanced Directives Records FoundNo Advanced Directives Records FoundNo Advanced Directives Records FoundNo Advanced Directives Records FoundNo Advanced Directives Records Found Chief Complaint and Reason for Visit Chief Complaint Elevated prostate sp ecific antigen [PSA] Additional Source Comments (unrecognized sect ion and content) No Status Records FoundNo Status Records FoundNo Status Records FoundNo Status Records FoundNo Status Records FoundNo Status Records Found INFORMATION SOURCE (unrecogn ized section and content) DATE CREATED AUTHOR 06/13/2018 [facility] ([place]) DATE CREATED AUTHOR AUTHOR'S ORGANIZ ATION 12/23/2018 [facility] DATE CREATED AUTHOR AUTHOR'S ORGANIZ ATION 04/09/2020 [facility] DATE CREATED AUTHOR AUTHOR'S ORGANIZ ATION 01/25/2024 [facility] DATE CREATED AUTHOR AUTHOR'S ORGANIZ ATION 06/11/2024 [facility] DATE CREATED AUTHOR AUTHOR'S ORGANIZ ATION 07/04/2024 [facility] Care Teams (unrecognized sec tion and content) Team Status: Active Member Role Status Dates Dr. Christiano Caldwell DO Family Provider Active Dr. Christiano Caldwell DO Primary Care Provider Active Team Status: Inactive Member Role Status Dates Dr. Christiano Caldwell DO Primary Care Provider Active Dr. Demetri Huffman MD Attending Provider, Referr ing Provider Active Goals (unrecognized section and content) Goals may be documented in a n alternate section No data available for this section FOR RECORDS PERTAINING TO PATIENTS WHO ARE OR HAVE BEEN ENROLLED IN A CHEMICAL DEPENDENCY/SUBSTANCEABUSE PROGRAM, SOME INFORMATION MAY BE OMITTED. This clinical summary was aggregated from multiple sources. Caution should be exercised in using it in the provision of clinical care. This summary normalizes information from multiple sources, and as a consequence, information in this document may materially change the coding, format and clinical context of patient data. In addition, data may be omitted in some cases. CLINICAL DECISIONS SHOULD BE BASED ON THE PRIMARY CLINICAL RECORDS. [facility] [employer] [facility]. provides no warranty or guarantee of the accuracy or completeness of information in this document.
[2025-02-22 10:05] LABS: PSA,Total- Diagnostic 1.72 ng/mL (0.00-4.00)
== END | disposition home or self-care (01) ==
LOC: LAB 08:29
PROVIDERS: PCP Family Medicine; Referring Provider Urology; Visit Provider Urology
DX: R97.20 Elevated prostate specific antigen [PSA] (principal)
CPT/HCPCS: 36415; 84153